=== PATIENT | male | born 1950 | race Caucasian/White ===

== ENCOUNTER 2023-04-17 09:23 | Day surgery (SDC) | payer OTHER ==
[2023-04-13 12:11] VITALS: BMI 24.9
[2023-04-17] MEDS ORDERED: PROPOFOL 40 ML ONE (10:54)
[2023-04-17 11:46] VITALS: TEMP 97.8
[2023-04-17 11:49] VITALS: BP 125/71; PULSE 56; RESP 19
== END 2023-04-17 12:00 | disposition home or self-care (01) ==
LOC: FASU-ENDO 09:23
PROVIDERS: ATTEND Internal Medicine Gastroenterology
PROC: 0DJD8ZZ Inspection of Lower Intestinal Tract, Via Natural or Artificial Opening Endoscopic (ICD-10-PCS; principal; 2023-04-17 11:13)
DX: Z12.11 Encounter for screening for malignant neoplasm of colon (principal)